=== PATIENT | male | born 1970 | race Caucasian/White ===

== ENCOUNTER 2019-09-05 10:52 | Outpatient (CLI) | payer MEDICAID, SELFPAY ==
--- NOTE | 2019-09-05 10:57 | XR_ITS ---
WS: [id number] THORACIC SPINE TECHNIQUE: AP and lateral views are performed. HISTORY: thoracic back pain COMPARISON: None available. Slight increase in thoracic kyphosis. Mild disc space narrowing and small endplate osteophytes withou t fractures. Pedicles are all identified. XR/XR thoracic spine 3V* [id number] IMPRESSION: Moderate thoracic spondylosis with no fracture.
== END 2019-09-05 10:53 | disposition home or self-care (01) ==
LOC: WPI 10:56
PROVIDERS: Family Provider Nurse Practitioner Family; PCP Nurse Practitioner Family; Referring Provider Nurse Practitioner Family; Visit Provider Nurse Practitioner Family
DX: M54.6 Pain in thoracic spine (principal); M47.894 Other spondylosis, thoracic region
CPT/HCPCS: 72072

== ENCOUNTER 2019-10-09 15:40 | Outpatient (CLI) | payer MEDICAID, SELFPAY ==
--- NOTE | 2019-10-09 16:00 | MR_ITS ---
WS: [id number] MRI THORACIC SPINE noncontrast HISTORY: BACK PAIN COMPARISON: 09/05/2019 TECHNIQUE: Multiplanar sequences are performed in sagittal and axial planes. Slight increase in thoracic kyphosis. No marrow edema or fracture. Signal within the cord is normal. Conus tapers normally ends at the L1-2 level. No inferior displacement of the cerebellar tonsils. T1-2: Normal. T2-3: Normal. T3-4: Normal. T4-5: Normal. T5-6: Mild facet arthropathy causing mild bilateral foraminal narrowing. T6-7: Moderate-sized central to RIGHT paracentral disc protrusion. CSF still surrounds the cord but there is slight concave deformity of the ventral cord. Mild LEFT foraminal narrowing. T7-8: RIGHT paracentral disc and/or osteophyte protrusion. Deforms the RIGHT lateral thecal sac. No significant stenosis. T8-9: Moderate-sized RIGHT paracentral disc protrusion causing flattening of the RIGHT lateral theca l sac and cord. Mild bilateral foraminal stenosis. T9-10: Very small RIGHT paracentral disc protrusion with moderate facet arthropathy. Moderate to sev ere bilateral foraminal stenosis. T10-11: Marked ligamentum flavum hypertrophy and facet arthropathy. Moderate to severe foraminal handy nosis. T11-12: Moderate to severe facet arthropathy. Resulting in moderate to severe bilateral foraminal st enosis. 10 mm cyst associated with the spleen. MR/MR thoracic spin wo con* [id number] IMPRESSION: 1. 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 2. Disc protrusions at T6-7, T7-8, T8-9 and T9-10 with mild encroachment upon the cord but no cord contact. 3. Mild bilateral foraminal stenosis at T5-6, T8-9 and on the LEFT at T6-7.
== END 2019-10-09 15:41 | disposition home or self-care (01) ==
LOC: RADSHAW 15:41
PROVIDERS: Family Provider Nurse Practitioner Family; PCP Nurse Practitioner Family; Visit Provider Nurse Practitioner Family
DX: M48.04 Spinal stenosis, thoracic region (principal); M47.814 Spondylosis without myelopathy or radiculopathy, thoracic region; M51.24 Other intervertebral disc displacement, thoracic region
CPT/HCPCS: 72146

== ENCOUNTER → 2019-10-14 09:33 | Outpatient (BNVA) | payer MEDICAID, SELFPAY | PROVIDERS: Family Provider Nurse Practitioner Family; PCP Nurse Practitioner Family; Referring Provider Nurse Practitioner Family; Visit Provider Anesthesiology Pain Medicine | DX: G89.29 Other chronic pain (principal); M79.18 Myalgia, other site; M40.204 Unspecified kyphosis, thoracic region; M47.814 Spondylosis without myelopathy or radiculopathy, thoracic region; M51.24 Other intervertebral disc displacement, thoracic region; M51.16 Intervertebral disc disorders with radiculopathy, lumbar region; F17.210 Nicotine dependence, cigarettes, uncomplicated | CPT/HCPCS: 20553; 99999 ==

== ENCOUNTER → 2019-11-11 11:50 | Outpatient (BNVA) | payer MEDICAID, SELFPAY | PROVIDERS: Family Provider Nurse Practitioner Family; PCP Nurse Practitioner Family; Visit Provider Anesthesiology Pain Medicine | DX: G89.29 Other chronic pain (principal); M47.814 Spondylosis without myelopathy or radiculopathy, thoracic region; M51.16 Intervertebral disc disorders with radiculopathy, lumbar region; F17.210 Nicotine dependence, cigarettes, uncomplicated | CPT/HCPCS: 64493; 64494; 64495; 64520; J2001; J3490 ==

== ENCOUNTER → 2019-11-25 10:56 | Outpatient (BNVA) | payer MEDICAID, SELFPAY | PROVIDERS: Family Provider Nurse Practitioner Family; PCP Nurse Practitioner Family; Visit Provider Anesthesiology Pain Medicine | DX: G89.29 Other chronic pain (principal); M47.814 Spondylosis without myelopathy or radiculopathy, thoracic region; M51.24 Other intervertebral disc displacement, thoracic region; M51.16 Intervertebral disc disorders with radiculopathy, lumbar region; F17.210 Nicotine dependence, cigarettes, uncomplicated | CPT/HCPCS: 99213 ==